=== PATIENT | male | born 1965 | race Caucasian/White ===

== ENCOUNTER 2017-10-27 14:18 | Inpatient (IN) | payer MEDICAID, OTHER ==
[2017-10-27] MEDS: ASPIRIN 325 MG TAB PO (16:07)
[2017-10-27 16:12] LABS: ADD MAN DIFF? NO
[2017-10-27] MEDS: SOD CHLORIDE 0.9% 1,000 ML IV ×6 (16:28→22:21)
[2017-10-27] MEDS: LORAZEPAM 2 MG INJ IV (16:28)
[2017-10-27 16:34] LABS: ANION GAP 22 (8-16); BLOOD UREA NITROGEN 18 mg/dl (7-20); CALCIUM 8.7 mg/dl (8.4-10.2); CARBON DIOXIDE 20 mmol/L (21-31); CHLORIDE 91 mmol/L (97-110); CREATININE 1.04 mg/dl (0.61-1.24); POTASSIUM 4.6 mmol/L (3.5-5.1); SODIUM 128 mmol/L (135-144)
[2017-10-27 16:44] LABS: GLUCOSE 780 mg/dl (70-220)
[2017-10-27 16:46] LABS: B-TYPE NATRIURETIC PEPTIDE 20 PG/ML (0-125)
[2017-10-27 16:47] LABS: TROPONIN-I < 0.012 ng/ml (0.00-0.12)
[2017-10-27 17:59] LABS: OSMOLALITY 307 mOsm/kg (280-295)
[2017-10-27] MEDS: ACCU-CHEK XX ×6 (18:00→23:35)
[2017-10-27] MEDS: INSULIN HUMAN REGULAR 100 UNIT in SOD CHLORIDE 0.9% 99 ML IV (18:27)
[2017-10-27 18:46] LABS: BASOPHIL # 0.1 10^3/ul (0.0-0.1); BASOPHILS % 0.7 % (0.0-2.0); EOSINOPHILS # 0.1 10^3/ul (0.0-0.5); HEMATOCRIT 37.3 % (42.0-52.0); HEMOGLOBIN 14.1 g/dl (14.0-18.0); LYMPHOCYTES # 2.5 10^3/ul (0.8-2.9); LYMPHOCYTES % 36.2 % (15.0-51.0); MEAN CORPUSCULAR HEMOGLOBIN 31.3 pg (29.0-33.0); MEAN CORPUSCULAR VOLUME 82.7 fl (82.0-101.0); MEAN PLATELET VOLUME 11.4 fl (7.4-10.4); MONOCYTE # 0.6 10^3/ul (0.3-0.9); MONOCYTES % 8.8 % (0.0-11.0); NEUTROPHIL # 3.6 10^3/ul (1.6-7.5); PLATELET COUNT 176 10^3/UL (140-415); POSITIVE DIFF @See below; RED BLOOD COUNT 4.51 10^6/ul (4.70-6.10); RED CELL DISTRIBUTION WIDTH 10.9 % (11.5-14.5)
[2017-10-27 18:46] LABS: WHITE BLOOD COUNT 6.9 10^3/ul (4.8-10.8)
[2017-10-27 18:59] LABS: ANION GAP 18 (8-16); BLOOD UREA NITROGEN 17 mg/dl (7-20); CALCIUM 8.3 mg/dl (8.4-10.2); CARBON DIOXIDE 22 mmol/L (21-31); CHLORIDE 97 mmol/L (97-110); CREATININE 0.96 mg/dl (0.61-1.24); POTASSIUM 4.3 mmol/L (3.5-5.1); SODIUM 133 mmol/L (135-144)
[2017-10-27] MEDS ORDERED: ACCU-CHEK XX (19:00)
[2017-10-27] MEDS ORDERED: INSULIN HUMAN REGULAR 100 UNIT in SOD CHLORIDE 0.9% 99 ML IV (19:00)
[2017-10-27] MEDS ORDERED: HYPOGLYCEMIA TREATMENT XX (19:00)
[2017-10-27] MEDS ORDERED: NACL 0.9% 3 ML SYG IV (19:00)
[2017-10-27 19:08] LABS: GLUCOSE 557 mg/dl (70-220)
[2017-10-27 19:22] LABS: MEAN CORPUSCULAR HGB CONC 37.8 g/dl (32.0-37.0)
[2017-10-27 21:26] LABS: ANION GAP 13 (8-16); BLOOD UREA NITROGEN 13 mg/dl (7-20); CALCIUM 7.5 mg/dl (8.4-10.2); CARBON DIOXIDE 23 mmol/L (21-31); CHLORIDE 106 mmol/L (97-110); CREATININE 0.74 mg/dl (0.61-1.24); GLUCOSE 278 mg/dl (70-220); SODIUM 139 mmol/L (135-144)
[2017-10-27] MEDS: DEXTROSE 5%-0.45% NACL 1,000 ML IV (21:37)
[2017-10-27] MEDS: NACL IV (23:00)
[2017-10-27] MEDS: DEXTROSE IV (23:00)
[2017-10-27] MEDS: POTASSIUM CHLORIDE IV (23:00)
[2017-10-27 23:26] LABS: CREATINE KINASE 210 IU/L (23-200)
[2017-10-27 23:27] LABS: ANION GAP 11 (8-16); BLOOD UREA NITROGEN 11 mg/dl (7-20); CALCIUM 7.5 mg/dl (8.4-10.2); CARBON DIOXIDE 26 mmol/L (21-31); CHLORIDE 109 mmol/L (97-110); CREATININE 0.74 mg/dl (0.61-1.24); GLUCOSE 133 mg/dl (70-220); SODIUM 143 mmol/L (135-144)
[2017-10-27 23:38] LABS: POTASSIUM 2.9 mmol/L (3.5-5.1)
[2017-10-27] MEDS: POTASSIUM CHLORIDE 100 ML IVPB (23:48)
[2017-10-27 23:51] LABS: CK-MB 2.02 ng/ml (0.0-2.4); TROPONIN-I < 0.012 ng/ml (0.00-0.12)
[2017-10-28] MEDS: ACCU-CHEK XX ×12 (00:48→11:21)
[2017-10-28 00:56] LABS: ANION GAP 13 (8-16); BLOOD UREA NITROGEN 10 mg/dl (7-20); CALCIUM 7.1 mg/dl (8.4-10.2); CARBON DIOXIDE 24 mmol/L (21-31); CHLORIDE 109 mmol/L (97-110); CREATININE 0.64 mg/dl (0.61-1.24); GLUCOSE 112 mg/dl (70-220); POTASSIUM 3.5 mmol/L (3.5-5.1); SODIUM 142 mmol/L (135-144)
[2017-10-28 01:02] LABS: MAGNESIUM 1.7 mg/dl (1.7-2.5)
[2017-10-28] MEDS: POTASSIUM CHLORIDE 100 ML IVPB (02:03)
[2017-10-28 05:46] LABS: ADD MAN DIFF? NO
[2017-10-28 05:57] LABS: WHITE BLOOD COUNT 5.9 10^3/ul (4.8-10.8)
[2017-10-28 05:57] LABS: BASOPHIL # 0.1 10^3/ul (0.0-0.1); BASOPHILS % 1.2 % (0.0-2.0); EOSINOPHILS # 0.2 10^3/ul (0.0-0.5); EOSINOPHILS % 3.9 % (0.0-7.0); HEMATOCRIT 33.7 % (42.0-52.0); HEMOGLOBIN 12.8 g/dl (14.0-18.0); LYMPHOCYTES % 33.6 % (15.0-51.0); MEAN CORPUSCULAR HEMOGLOBIN 31.5 pg (29.0-33.0); MEAN PLATELET VOLUME 11.3 fl (7.4-10.4); MONOCYTE # 0.4 10^3/ul (0.3-0.9); MONOCYTES % 7.5 % (0.0-11.0); NEUTROPHIL # 3.1 10^3/ul (1.6-7.5); NEUTROPHILS % 53.5 % (39.0-77.0); PLATELET COUNT 152 10^3/UL (140-415); POSITIVE DIFF @See below; RED BLOOD COUNT 4.06 10^6/ul (4.70-6.10); RED CELL DISTRIBUTION WIDTH 11.3 % (11.5-14.5)
[2017-10-28 06:25] LABS: CREATINE KINASE 228 IU/L (23-200)
[2017-10-28 06:26] LABS: ALANINE AMINOTRANSFERASE 42 IU/L (13-69); ALBUMIN 2.8 g/dl (3.3-4.9); ALBUMIN/GLOBULIN RATIO 1.12; ALKALINE PHOSPHATASE 81 IU/L (42-121); ANION GAP 15 (8-16); ASPARTATE AMINO TRANSFERASE 26 IU/L (15-46); BILIRUBIN,INDIRECT 0.5 mg/dl (0-1.1); BILIRUBIN,TOTAL 0.5 mg/dl (0.2-1.3); BLOOD UREA NITROGEN 8 mg/dl (7-20); CALCIUM 7.3 mg/dl (8.4-10.2); CARBON DIOXIDE 21 mmol/L (21-31); CHLORIDE 109 mmol/L (97-110); CREATININE 0.64 mg/dl (0.61-1.24); GLUCOSE 211 mg/dl (70-220); POTASSIUM 3.6 mmol/L (3.5-5.1); SODIUM 141 mmol/L (135-144); TOTAL PROTEIN 5.3 g/dl (6.1-8.1)
[2017-10-28 06:28] LABS: PHOSPHORUS 3.1 mg/dl (2.5-4.9)
[2017-10-28 06:39] LABS: CK-MB 2.22 ng/ml (0.0-2.4); TROPONIN-I < 0.012 ng/ml (0.00-0.12)
[2017-10-28 07:05] LABS: HEMOGLOBIN A1C 9.9 % (0-5.9)
[2017-10-28 08:18] LABS: ANION GAP 15 (8-16); BLOOD UREA NITROGEN 7 mg/dl (7-20); CALCIUM 7.5 mg/dl (8.4-10.2); CARBON DIOXIDE 21 mmol/L (21-31); CHLORIDE 106 mmol/L (97-110); CREATININE 0.62 mg/dl (0.61-1.24); GLUCOSE 283 mg/dl (70-220); POTASSIUM 3.6 mmol/L (3.5-5.1); SODIUM 138 mmol/L (135-144)
[2017-10-28] MEDS: ENOXAPARIN 40 MG/0.4 ML SYG SC (09:16)
[2017-10-28 10:22] LABS: ANION GAP 16 (8-16); BLOOD UREA NITROGEN 6 mg/dl (7-20); CALCIUM 7.7 mg/dl (8.4-10.2); CARBON DIOXIDE 22 mmol/L (21-31); CHLORIDE 104 mmol/L (97-110); CREATININE 0.61 mg/dl (0.61-1.24); GLUCOSE 292 mg/dl (70-220); POTASSIUM 3.6 mmol/L (3.5-5.1); SODIUM 138 mmol/L (135-144)
[2017-10-28] MEDS: INSULIN GLARGINE [LANtus] 3 ML PEN SC (11:50)
[2017-10-28] MEDS: INSULIN ASPART [NOVOLOG] 3 ML PEN SC ×5 (12:02→20:38)
[2017-10-28 13:03] LABS: ANION GAP 14 (8-16); BLOOD UREA NITROGEN 5 mg/dl (7-20); CALCIUM 8.1 mg/dl (8.4-10.2); CARBON DIOXIDE 21 mmol/L (21-31); CHLORIDE 106 mmol/L (97-110); GLUCOSE 240 mg/dl (70-220); POTASSIUM 3.4 mmol/L (3.5-5.1); SODIUM 138 mmol/L (135-144)
[2017-10-28] MEDS: POTASSIUM CHLORIDE (SR) 20 MEQ TAB PO (13:11)
[2017-10-28] MEDS ORDERED: GLUCOSE GEL 15 GRAM TUBE BUCCAL (13:30)
[2017-10-28] MEDS ORDERED: GLUCAGON 1 MG INJ IM (13:30)
[2017-10-28] MEDS ORDERED: DEXTROSE 50% 50 ML SYRINGE IV ×2 (13:30)
[2017-10-28] MEDS ORDERED: GLUCOSE GEL 15 GRAM TUBE PO ×2 (13:30)
[2017-10-28 14:14] LABS: ANION GAP 17 (8-16); BLOOD UREA NITROGEN 7 mg/dl (7-20); CALCIUM 8.4 mg/dl (8.4-10.2); CARBON DIOXIDE 22 mmol/L (21-31); CHLORIDE 103 mmol/L (97-110); CREATININE 0.71 mg/dl (0.61-1.24); GLUCOSE 324 mg/dl (70-220); POTASSIUM 3.5 mmol/L (3.5-5.1); SODIUM 138 mmol/L (135-144)
[2017-10-28] MEDS: POTASSIUM CHLORIDE IV ×2 (15:00→17:13)
[2017-10-28] MEDS: DEXTROSE IV ×2 (15:00→17:13)
[2017-10-28] MEDS: NACL IV ×2 (15:00→17:13)
[2017-10-28] MEDS: REPAGLINIDE 1 MG TAB PO (17:35)
[2017-10-28] MEDS: metFORMIN 850 MG TAB PO (17:43)
[2017-10-28 19:54] LABS: ADD UMIC YES; UR ASCORBIC ACID NEGATIVE (NEGATIVE); UR BILIRUBIN (Dip) NEGATIVE (NEGATIVE); UR BLOOD (Dip) 1+ mg/dL (NEGATIVE); UR CLARITY CLEAR (CLEAR); UR COLOR COLORLESS (YELLOW); UR GLUCOSE (Dip) 3+ mg/dL (NEGATIVE); UR KETONES (Dip) TRACE mg/dL (NEGATIVE); UR LEUKOCYTE ESTERASE (Dip) NEGATIVE Leu/ul (NEGATIVE); UR NITRITE (Dip) NEGATIVE (NEGATIVE); UR RBC 1 /HPF (0-5); UR TOTAL PROTEIN (Dip) NEGATIVE (NEGATIVE); UR UROBILINOGEN (Dip) NEGATIVE (NEGATIVE); UR WBC 0 /HPF (0-5)
[2017-10-29] MEDS: DEXTROSE IV (03:44)
[2017-10-29] MEDS: NACL IV (03:44)
[2017-10-29] MEDS: POTASSIUM CHLORIDE IV (03:44)
[2017-10-29 06:03] LABS: ADD MAN DIFF? NO
[2017-10-29 06:08] LABS: WHITE BLOOD COUNT 7.3 10^3/ul (4.8-10.8)
[2017-10-29 06:08] LABS: BASOPHIL # 0.1 10^3/ul (0.0-0.1); EOSINOPHILS # 0.4 10^3/ul (0.0-0.5); EOSINOPHILS % 5.2 % (0.0-7.0); HEMATOCRIT 40.5 % (42.0-52.0); HEMOGLOBIN 15.1 g/dl (14.0-18.0); LYMPHOCYTES # 2.7 10^3/ul (0.8-2.9); LYMPHOCYTES % 37.7 % (15.0-51.0); MEAN CORPUSCULAR HEMOGLOBIN 30.9 pg (29.0-33.0); MEAN CORPUSCULAR HGB CONC 37.3 g/dl (32.0-37.0); MEAN CORPUSCULAR VOLUME 82.8 fl (82.0-101.0); MEAN PLATELET VOLUME 11.6 fl (7.4-10.4); MONOCYTE # 0.5 10^3/ul (0.3-0.9); MONOCYTES % 7.3 % (0.0-11.0); NEUTROPHIL # 3.5 10^3/ul (1.6-7.5); NEUTROPHILS % 48.1 % (39.0-77.0); PLATELET COUNT 174 10^3/UL (140-415); RED BLOOD COUNT 4.89 10^6/ul (4.70-6.10); RED CELL DISTRIBUTION WIDTH 11.5 % (11.5-14.5)
[2017-10-29 06:25] LABS: MAGNESIUM 1.7 mg/dl (1.7-2.5)
[2017-10-29 06:25] LABS: PHOSPHORUS 3.2 mg/dl (2.5-4.9)
[2017-10-29 06:29] LABS: ALANINE AMINOTRANSFERASE 49 IU/L (13-69); ALBUMIN 3.5 g/dl (3.3-4.9); ALBUMIN/GLOBULIN RATIO 1.16; ALKALINE PHOSPHATASE 92 IU/L (42-121); ANION GAP 17 (8-16); ASPARTATE AMINO TRANSFERASE 35 IU/L (15-46); BILIRUBIN,INDIRECT 0.3 mg/dl (0-1.1); BILIRUBIN,TOTAL 0.3 mg/dl (0.2-1.3); BLOOD UREA NITROGEN 10 mg/dl (7-20); CALCIUM 8.8 mg/dl (8.4-10.2); CARBON DIOXIDE 22 mmol/L (21-31); CHLORIDE 104 mmol/L (97-110); CREATININE 0.72 mg/dl (0.61-1.24); GLUCOSE 287 mg/dl (70-220); SODIUM 139 mmol/L (135-144); TOTAL PROTEIN 6.5 g/dl (6.1-8.1)
[2017-10-29] MEDS: REPAGLINIDE 1 MG TAB PO ×3 (07:30→12:00)
[2017-10-29] MEDS: INSULIN ASPART [NOVOLOG] 3 ML PEN SC ×4 (08:09→20:37)
[2017-10-29] MEDS: INSULIN GLARGINE [LANtus] 3 ML PEN SC ×2 (08:11→15:01)
[2017-10-29] MEDS: metFORMIN 850 MG TAB PO ×2 (09:13→17:33)
[2017-10-29] MEDS: ENOXAPARIN 40 MG/0.4 ML SYG SC (09:18)
[2017-10-29] MEDS ORDERED: REPAGLINIDE 1 MG TAB PO (17:35)
[2017-10-29] MEDS: GLIMEPIRIDE 4 MG TAB PO (17:56)
[2017-10-29] MEDS: ACETAMINOPHEN 325 MG TAB PO (21:13)
[2017-10-30] MEDS: INSULIN GLARGINE [LANtus] 3 ML PEN SC ×2 (08:26→14:32)
[2017-10-30] MEDS: INSULIN ASPART [NOVOLOG] 3 ML PEN SC ×2 (08:27→12:18)
[2017-10-30] MEDS: ENOXAPARIN 40 MG/0.4 ML SYG SC (08:27)
[2017-10-30] MEDS: GLIMEPIRIDE 4 MG TAB PO (08:31)
[2017-10-30] MEDS: metFORMIN 850 MG TAB PO (09:16)
[2017-10-30 14:27] LABS: CREATININE, RANDOM URINE 26 mg/dL (20-370); MICROALBUMIN 0.5 mg/dL; MICROALBUMIN/CREATININE RATIO 19 (<30)
[2017-10-31] MEDS ORDERED: INSULIN GLARGINE [LANtus] 3 ML PEN SC (08:00)
== END 2017-10-30 15:05 | disposition home or self-care (01) | DRG 638 ==
LOC: PP2 18:14 → E/R 14:18
DX: E11.10 Type 2 diabetes mellitus with ketoacidosis without coma (principal); N17.9 Acute kidney failure, unspecified; E87.2 Acidosis; K86.89 Other specified diseases of pancreas; Z79.4 Long term (current) use of insulin
CPT/HCPCS: 36415; 71045; 80048; 80053; 81001; 82043; 82550; 82553; 82962; 83036; 83735; 83880; 83930; 84100; 84443; 84484; 85025; 87040; 87086; 93005; 96372; 96374; 96375; 96376; 99291-25

== ENCOUNTER 2018-03-17 10:02 | Emergency (ER) | payer SELFPAY, MEDICAID | END 2018-03-17 13:43 | disposition home or self-care (01) | LOC: E/R 10:02 | DX: E11.65 Type 2 diabetes mellitus with hyperglycemia (principal); R53.81 Other malaise; Z79.4 Long term (current) use of insulin; Z91.14 Patient's other noncompliance with medication regimen | CPT/HCPCS: 82962; 93005; 99283-25 ==

== ENCOUNTER 2018-08-19 19:25 | Emergency (ER) | payer SELFPAY ==
[2018-08-19] MEDS: SOD CHLORIDE 0.9% 1,000 ML IV (21:30)
[2018-08-19 21:36] LABS: ADD UMIC YES; UR ASCORBIC ACID NEGATIVE (NEGATIVE); UR BILIRUBIN (Dip) NEGATIVE (NEGATIVE); UR BLOOD (Dip) 1+ mg/dL (NEGATIVE); UR CLARITY CLEAR (CLEAR); UR COLOR COLORLESS (YELLOW); UR GLUCOSE (Dip) 3+ mg/dL (NEGATIVE); UR KETONES (Dip) NEGATIVE (NEGATIVE); UR LEUKOCYTE ESTERASE (Dip) NEGATIVE Leu/ul (NEGATIVE); UR NITRITE (Dip) NEGATIVE (NEGATIVE); UR RBC 0 /HPF (0-5); UR TOTAL PROTEIN (Dip) NEGATIVE (NEGATIVE); UR UROBILINOGEN (Dip) NEGATIVE (NEGATIVE); UR WBC 0 /HPF (0-5)
[2018-08-19 22:17] LABS: ADD MAN DIFF? NO
[2018-08-19 22:29] LABS: ALANINE AMINOTRANSFERASE 31 IU/L (13-69); ALBUMIN 4.4 g/dl (3.3-4.9); ALBUMIN/GLOBULIN RATIO 1.41; ALKALINE PHOSPHATASE 135 IU/L (42-121); ANION GAP 15 (5-13); ASPARTATE AMINO TRANSFERASE 36 IU/L (15-46); BILIRUBIN,INDIRECT 0.1 mg/dl (0-1.1); BILIRUBIN,TOTAL 0.1 mg/dl (0.2-1.3); BLOOD UREA NITROGEN 18 mg/dl (7-20); CALCIUM 9.3 mg/dl (8.4-10.2); CARBON DIOXIDE 23 mmol/L (21-31); CHLORIDE 95 mmol/L (97-110); CREATININE 0.98 mg/dl (0.61-1.24); Estimated GFR > 60 mL/min (>60); LIPASE 271 U/L (23-300); POTASSIUM 3.8 mmol/L (3.5-5.1); SODIUM 133 mmol/L (135-144); TOTAL PROTEIN 7.5 g/dl (6.1-8.1)
[2018-08-19 22:33] LABS: BASOPHIL # 0.1 10^3/ul (0.0-0.1); BASOPHILS % 0.9 % (0.0-2.0); EOSINOPHILS # 0.3 10^3/ul (0.0-0.5); GLUCOSE 412 mg/dl (70-220); HEMATOCRIT 40.8 % (42.0-52.0); HEMOGLOBIN 15.1 g/dl (14.0-18.0); LYMPHOCYTES # 3.3 10^3/ul (0.8-2.9); LYMPHOCYTES % 42.8 % (15.0-51.0); MEAN CORPUSCULAR HEMOGLOBIN 31.1 pg (29.0-33.0); MEAN CORPUSCULAR VOLUME 84.1 fl (82.0-101.0); MEAN PLATELET VOLUME 11.8 fl (7.4-10.4); MONOCYTE # 0.7 10^3/ul (0.3-0.9); MONOCYTES % 9.2 % (0.0-11.0); NEUTROPHIL # 3.3 10^3/ul (1.6-7.5); NEUTROPHILS % 42.8 % (39.0-77.0); PLATELET COUNT 239 10^3/UL (140-415); RED BLOOD COUNT 4.85 10^6/ul (4.70-6.10)
[2018-08-19 22:33] LABS: WHITE BLOOD COUNT 7.7 10^3/ul (4.8-10.8)
[2018-08-19 22:58] LABS: TROPONIN-I < 0.012 ng/ml (0.000-0.120)
== END 2018-08-20 00:49 | disposition home or self-care (01) ==
LOC: E/R 08-20 00:49
DX: E11.9 Type 2 diabetes mellitus without complications (principal); Z79.4 Long term (current) use of insulin
CPT/HCPCS: 36415; 80053; 81001; 82962; 83690; 84484; 85025; 93005; 99284-25